=== PATIENT | female | born 1965 | race Caucasian/White ===

== ENCOUNTER 2016-03-15 13:04 | Inpatient (IN) | payer BC ==
[~2016-03-15] VITALS: Ht 165.1 cm; Wt 107.2 kg
[~2016-03-15 13:04] MED LIST: CARDIZEM CD240 MG PO; FAMOTIDINE40 MG PO; HUMULIN 70100 UNIT/2 SC; K-DUR20 MEQ PO; LASIX40 MG PO; LIPITOR10 MG PO; METFORMIN HCL1000 MG PO; PREDNISONE10 M1 PO; SINGULAIR10 MG PO; SYMBICORT60 INHALAT IH; TOPROL XL100 MG PO; VALSARTAN160 MG PO; VENTOLIN HFA18 GM IH
[2016-03-15 14:01] LABS: CHLORIDE 96 mEq/L (99-109); POTASSIUM 3.7 mEq/L (3.7-5.4); SODIUM 136 mEq/L (136-147)
[2016-03-15 14:03] LABS: GLUCOSE 371 mg/dL (70-99)
[2016-03-15 14:04] LABS: ANION GAP 19 MEQ/L (2-14)
[2016-03-15 14:07] LABS: GFR ESTIMATE (CALCULATED) 28 mL/min/
[2016-03-15 14:08] LABS: UREA NITROGEN (BUN) 28 mg/dL (9-23)
[2016-03-15 14:09] LABS: TROP-I INTERPRETATION NEGATIVE; TROPONIN-I 0.08 ng/mL (0.0-0.30)
[2016-03-15 14:18] LABS: HEMATOCRIT 44.8 % (36.0-46.0); MCH 28.1 PG (29.0-34.0); RBC DIS.WIDTH-CV 14.8 % (11.8-14.6); RBC DIS.WIDTH-SD 45.7 % (39-53); RED BLOOD COUNT 5.27 M/uL (3.80-5.20); WHITE BLOOD COUNT 7.8 K/uL (4.1-10.2)
[2016-03-15 14:36] LABS: MEAN PLAT.VOLUME 13.5 uM^3 (9.5-12.4); PLATELET COUNT 172 K/uL (156-360)
[2016-03-15 16:40] LABS: INTER. NORMALIZED RATIO 1.2; PROTHROMBIN TIME 12.6 (9.2-11.2); PTT 35.2 (25-32)
[2016-03-15] MEDS ORDERED: SAVAYSA60 MG PO (17:23)
[2016-03-15] MEDS ORDERED: METOPROLOL SUC100 MG PO (17:23)
[2016-03-15] MEDS ORDERED: VALSARTAN320 MG PO (17:25)
[2016-03-15] MEDS ORDERED: FAMOTIDINE40 MG PO (17:27)
[2016-03-15 18:08] LABS: POINT-OF-CARE METER ID UU14100415; POINT-OF-CARE USER ID STWBNM43
[2016-03-16 02:10] VITALS: BP 128/75
[2016-03-16 02:23] LABS: POINT-OF-CARE METER ID UU13113781
[2016-03-16 06:47] LABS: TROP-I INTERPRETATION NEGATIVE
[2016-03-16 08:06] LABS: POINT-OF-CARE METER ID UU13113781
[2016-03-16 08:50] VITALS: BP 164/89
[2016-03-16 11:37] VITALS: BP 160/81
[2016-03-16 12:35] LABS: POINT-OF-CARE METER ID UU13113781
[2016-03-16 15:19] LABS: ANION GAP 12 MEQ/L (2-14); CHLORIDE 100 MEQ/L (99-109); POTASSIUM 3.1 MEQ/L (3.7-5.4); SAMPLE HEMOLYSIS CHECK 0; SAMPLE ICTERIC CHECK 0; SAMPLE LIPEMIA CHECK 0; SODIUM 138 MEQ/L (136-147)
[2016-03-16 15:25] LABS: GFR ESTIMATE (CALCULATED) > 59 mL/min/; GLUCOSE 200 mg/dL (70-99); UREA NITROGEN (BUN) 26 mg/dL (9-23)
[2016-03-16 15:33] LABS: HEMATOCRIT 38.9 % (36.0-46.0); HEMATOLOGY COMMENT 1 SMEAR COMPATIBLE; MCH 28.4 PG (29.0-34.0); MCHC 32.9 G/DL (30.0-36.0); MCV 86.4 FL (83-99); MEAN PLAT.VOLUME 14.2 uM^3 (9.5-12.4); PLATELET COUNT 132 K/uL (156-360); RBC DIS.WIDTH-CV 14.5 % (11.8-14.6); RBC DIS.WIDTH-SD 45.6 % (39-53)
[2016-03-16 16:28] LABS: POINT-OF-CARE METER ID UU13113781
[2016-03-16 19:13] VITALS: BP 163/72
[2016-03-17] VITALS (7 sets, daily range): BP systolic 142–172; BP diastolic 73–92
[2016-03-17 07:26] LABS: HEMATOCRIT 38.5 % (36.0-46.0); MCH 28.2 PG (29.0-34.0); MCHC 32.2 G/DL (30.0-36.0); MCV 87.5 FL (83-99); RBC DIS.WIDTH-CV 14.4 % (11.8-14.6); RBC DIS.WIDTH-SD 46.1 % (39-53); WHITE BLOOD COUNT 6.4 K/uL (4.1-10.2)
[2016-03-17 07:38] LABS: BASOPHIL COUNT 0.1 K/uL (0-0.1); EOSINOPHIL (%) 2.6 % (0-5); EOSINOPHIL COUNT 0.2 K/uL (0-0.3); IMMATURE GRANULOCYTE (%) 0.2 % (0.0-0.7); LYMPHOCYTE COUNT 3.2 K/uL (1.0-2.8); MEAN PLAT.VOLUME 13.7 uM^3 (9.5-12.4); MONOCYTE (%) 5.1 % (3-12); MONOCYTE COUNT 0.3 K/uL (0-0.8); NEUTROPHIL (%) 42.2 % (45-76); NEUTROPHIL COUNT 2.7 K/uL (1.8-6.4); PLAT.SUFFICIENCY DECREASED; PLATELET COUNT 129 K/uL (156-360)
[2016-03-17 08:14] LABS: POINT-OF-CARE METER ID UU14174216
[2016-03-17 09:01] LABS: ANION GAP 10 MEQ/L (2-14); CHLORIDE 105 MEQ/L (99-109); GFR ESTIMATE (CALCULATED) > 59 mL/min/; GLUCOSE 171 mg/dL (70-99); POTASSIUM 3.6 MEQ/L (3.7-5.4); SAMPLE HEMOLYSIS CHECK 0; SAMPLE ICTERIC CHECK 0; SAMPLE LIPEMIA CHECK 0; SODIUM 141 MEQ/L (136-147); UREA NITROGEN (BUN) 18 mg/dL (9-23)
[2016-03-17 11:38] LABS: POINT-OF-CARE METER ID UU14174216
[2016-03-17 16:38] LABS: POINT-OF-CARE METER ID UU14174216
[2016-03-17 20:28] LABS: POINT-OF-CARE METER ID UU14174216
[2016-03-18 05:09] VITALS: BP 158/76
[2016-03-18 08:22] LABS: POINT-OF-CARE METER ID UU14174216
[2016-03-18 08:41] VITALS: BP 164/86
[2016-03-18 11:25] LABS: POINT-OF-CARE METER ID UU14174216
[2016-03-18 13:07] VITALS: BP 166/88
[2016-03-18 16:25] LABS: POINT-OF-CARE METER ID UU14174216
[2016-03-18 16:40] VITALS: BP 168/92
[2016-03-18 18:01] VITALS: BP 158/82
[2016-03-18] MEDS ORDERED: CORDARONE200 MG PO (18:32)
[2016-03-18] MEDS ORDERED: CARDIZEM60 MG PO (18:33)
[2016-03-18] MEDS ORDERED: SINGULAIR10 MG PO (18:35)
[2016-03-18] MEDS ORDERED: FAMOTIDINE40 MG PO (18:35)
[2016-03-18] MEDS ORDERED: MUCINEX600 MG PO (18:35)
== END 2016-03-18 19:15 | disposition home or self-care (01) | DRG 309 ==
LOC: EME 13:04 → EDOF 21:40 → 4EAST 21:40 → EDOF 21:44 → 4EAST 03-16 01:59
PROVIDERS: Emergency Medicine; Family Medicine Sports Medicine
DX: I48.4 Atypical atrial flutter (principal); J45.901 Unspecified asthma with (acute) exacerbation; J21.9 Acute bronchiolitis, unspecified; I48.0 Paroxysmal atrial fibrillation; I95.9 Hypotension, unspecified; E11.9 Type 2 diabetes mellitus without complications; I27.2 Other secondary pulmonary hypertension; K21.9 Gastro-esophageal reflux disease without esophagitis; E87.6 Hypokalemia; J20.9 Acute bronchitis, unspecified; I11.9 Hypertensive heart disease without heart failure; J30.2 Other seasonal allergic rhinitis; E78.5 Hyperlipidemia, unspecified; F41.9 Anxiety disorder, unspecified; G43.909 Migraine, unspecified, not intractable, without status migrainosus; E66.9 Obesity, unspecified; Z68.39 Body mass index [BMI] 39.0-39.9, adult; Z79.4 Long term (current) use of insulin; Z79.01 Long term (current) use of anticoagulants; Z79.84 Long term (current) use of oral hypoglycemic drugs; Z79.82 Long term (current) use of aspirin; Z82.49 Family history of ischemic heart disease and other diseases of the circulatory system; Z83.3 Family history of diabetes mellitus
CPT/HCPCS: 71010; 80048; 82948; 83880; 84484; 85025; 85027; 85610; 85730; 93005; 94640; 94640 76; 99202; 99281; 99285; J1160; J1815; J3480; J7030; J7050

== ENCOUNTER 2016-05-30 07:49 | Day surgery (SDC) | payer BC ==
[~2016-05-30] VITALS: Ht 165.1 cm; Wt 104.0 kg
[~2016-05-30 07:49] MED LIST changes: +AMIODARONE HCL200 MG PO; +BENICAR40 MG PO; +CARDIZEM60 MG PO; +CORDARONE200 MG PO; +METOPROLOL SUC100 MG PO; +METOPROLOL TAR100 MG PO; +MUCINEX600 MG PO; +SAVAYSA60 MG PO; +VALSARTAN320 MG PO
[2016-05-30 08:29] LABS: POINT-OF-CARE METER ID UU13113696
[2016-05-30 09:59] LABS: BASE EXCESS 2.5 mEq/L (-3 to +3); BICARBONATE 28.8 mEq/L (22-26); CARBOXY HGB 0.1 % (0-5); METHEMOGLOBIN 0 % (0-1.5); PCO2 51 mm Hg (35-45); PO2 160 mm Hg (80-100); pH 7.36 (7.35-7.45)
[2016-05-30 10:00] LABS: COMMENTS - BLOOD GASES DRAWN BY CATH LAB; SITE AO
[2016-05-30 10:03] LABS: BASE EXCESS 5.5 mEq/L (-3 to +3); BICARBONATE 32.9 mEq/L (22-26); CARBOXY HGB 0.2 % (0-5); COMMENTS - BLOOD GASES DRAWN BY CATH LAB; PCO2 61 mm Hg (35-45); PO2 36 mm Hg (80-100); SITE PA; pH 7.34 (7.35-7.45)
== END 2016-05-30 21:13 | disposition home or self-care (01) ==
LOC: CATH 07:49
PROVIDERS: Internal Medicine Cardiovascular Disease
PROC: 4A033BC Measurement of Arterial Pressure, Coronary, Percutaneous Approach (ICD-10-PCS; principal; 2016-05-30)
PROC: B2111ZZ Fluoroscopy of Multiple Coronary Arteries using Low Osmolar Contrast (ICD-10-PCS; principal; 2016-05-30)
PROC: B2151ZZ Fluoroscopy of Left Heart using Low Osmolar Contrast (ICD-10-PCS; principal; 2016-05-30)
PROC: 4A023N8 Measurement of Cardiac Sampling and Pressure, Bilateral, Percutaneous Approach (ICD-10-PCS; principal; 2016-05-30)
DX: I25.10 Atherosclerotic heart disease of native coronary artery without angina pectoris (principal); R06.09 Other forms of dyspnea; I27.2 Other secondary pulmonary hypertension; I48.91 Unspecified atrial fibrillation; Z79.01 Long term (current) use of anticoagulants; I10 Essential (primary) hypertension; E11.9 Type 2 diabetes mellitus without complications; Z79.4 Long term (current) use of insulin; J45.909 Unspecified asthma, uncomplicated; K21.9 Gastro-esophageal reflux disease without esophagitis; E66.9 Obesity, unspecified; Z68.38 Body mass index [BMI] 38.0-38.9, adult
CPT/HCPCS: 36600; 82803; 82948; 85347; C1769; C1887; C1894; J0153; J0280; J0360; J0583; J1644; J2250; J3010; J7050